=== PATIENT | male | born 1960 | race Two or more races ===

== ENCOUNTER 2024-02-01 09:34 | Emergency (ER) | payer OTHER ==
[~2024-02-01] VITALS: Ht 167.6 cm; Wt 71.2 kg
[~2024-02-01 09:34] MED LIST: CELEXA10 MG; CIPRO HC OTIC S10 ML; CLONAZEPAM1 MG; LEVAQUIN500 MG; METFORMIN HCL500 MG; METHYLPREDNISOLO4 MG; WELLBUTRIN XL150 M1
[2024-02-01] MEDS ORDERED: 0.9 % SODIUM CHLORIDE 1,000 ML IV STA (09:57)
[2024-02-01] MEDS ORDERED: CLONAZEPAM 1 MG TABLET PO ONE (10:15)
[2024-02-01 10:44] LABS: HEMATOCRIT 43.5 % (39.0-48.0); HEMOGLOBIN 15.1 g/dL (13-16.00); MEAN CELL VOLUME 87.4 fL (80.0-100.00); MEAN CORPUSCULAR HEMOGLOBIN 30.3 pg (27.00-32.0); MEAN CORPUSCULAR HGB CONC 34.6 g/dl (32.0-36.0); PLATELET COUNT 278 K/uL (150-450); RED BLOOD COUNT 4.98 M/uL (4.00-6.00); RED CELL DISTRIBUTION WIDTH 12.6 % (11.5-14.5)
[2024-02-01 11:25] LABS: ABG PH 7.527 (7.35-7.45); ABG PO2 108.6 mmHg (80-100); ABG pCO2 26.8 mmHg (35-45); BASE EXCESS 0.5 mmol/l; BICARBONATE 21.7 mmol/l (23-25); SaO2 98.8 %; Tco2 22.5 mmol/l
[2024-02-01 11:39] LABS: allen test SATISFACTORY; o2 21 %; puncture site RADIAL RIGHT
[2024-02-01 11:51] LABS: CALCIUM 10.1 mg/dL (8.5-10.1); CREATININE SERUM 1.28 mg/dL (0.70-1.30); GFR 56.4; POTASSIUM 4.36 mEq/L (3.5-5.1)
== END 2024-02-01 15:04 | disposition home or self-care (01) ==
LOC: ER 09:34
PROVIDERS: Emergency Medicine
DX: R42 Dizziness and giddiness (principal); E11.65 Type 2 diabetes mellitus with hyperglycemia; R53.1 Weakness; Z88.2 Allergy status to sulfonamides

== ENCOUNTER 2024-09-02 14:31 | Emergency (ER) | payer OTHER ==
[~2024-09-02] VITALS: Ht 167.6 cm; Wt 72.6 kg
[2024-09-02] MEDS ORDERED: ZOLPIDEM TARTR3.5 MG SL (14:40)
[2024-09-02] MEDS ORDERED: BUPROPION XL150 MG PO (14:40)
[2024-09-02] MEDS ORDERED: 0.9 % SODIUM CHLORIDE 500 ML IV ONE (15:00)
[2024-09-02] MEDS ORDERED: INSULIN REGULAR, HUMAN 1,000 UNIT/10 ML UNITS IV ONE (15:15)
[2024-09-02] MEDS ORDERED: INSULIN NPH HUM/REG INSULIN HM 1,000 UNIT/10 ML UNITS SUBCUTANEO ONE (15:15)
[2024-09-02 15:42] LABS: HEMATOCRIT 46.2 % (39.0-48.0); HEMOGLOBIN 15.6 g/dL (13-16.00); MEAN CELL VOLUME 88.8 fL (80.0-100.00); MEAN CORPUSCULAR HGB CONC 33.8 g/dl (32.0-36.0); PLATELET COUNT 271 K/uL (150-450); RED CELL DISTRIBUTION WIDTH 12.6 % (11.5-14.5)
[2024-09-02 16:07] LABS: ALBUMIN 3.6 gm/dL (3.4-5.0); BILIRUBIN TOTAL 0.53 mg/dL (0.3-1.2); CALCIUM 9.5 mg/dL (8.5-10.1); CREATININE SERUM 1.19 mg/dL (0.70-1.30); GFR 61.16; POTASSIUM 4.89 mEq/L (3.5-5.1); TOTAL PROTEIN 7.6 gm/dL (6.4-8.2)
[2024-09-02] MEDS ORDERED: INSULIN REGULAR, HUMAN 1,000 UNIT/10 ML UNITS SUBCUTANEO ONE (17:30)
[2024-09-02] MEDS ORDERED: DEXTROSE 50 % IN WATER 0.5 G/ML DISP.SYRIN IV PRN (20:00)
[2024-09-02] MEDS ORDERED: INSULIN LISPRO 1,000 UNIT/10 ML UNITS SUBCUTANEO PRN (20:00)
== END 2024-09-03 13:21 | disposition home or self-care (01) ==
LOC: ER 14:31
PROVIDERS: Emergency Medicine
DX: E11.65 Type 2 diabetes mellitus with hyperglycemia (principal); Z79.84 Long term (current) use of oral hypoglycemic drugs; Z88.0 Allergy status to penicillin; Z88.2 Allergy status to sulfonamides; Z88.6 Allergy status to analgesic agent